=== PATIENT | female | born 2000 | race Caucasian/White ===

== ENCOUNTER 2021-09-24 21:18 | Emergency (ER) | payer OTHER ==
[~2021-09-24 21:18] MED LIST: AMOXICILLIN500 MG PO; AZITHROMYCIN500 MG PO; BACTRIM DS TAB1 EACH PO; IBUPROFEN400 M1 PO; IBUPROFEN800 MG PO; METRONIDAZOLE500 MG PO; NORCO 5-325 TA1 EACH PO; PHENERGAN25 M1 PO; PROMETHAZINE-D118 ML PO; ZOFRAN4 MG PO; ZYRTEC10 M3 PO
[2021-09-24 22:45] LABS: BASOPHIL 0.1 % (0-2); EOSINOPHIL 0.2 % (0-5); HCT 48.3 % (37.0-47.0); HGB 16.3 g/dl (12.5-16.0); LYMPHOCYTE 3.8 % (15-48); MCH 30.8 pg (25.0-31.0); MCHC 33.7 g/dL (32.0-36.0); MCV 91.1 fL (78.0-100.0); MONOCYTE 3.2 % (0-12); NEUTROPHIL 92.3 % (41-80); NRBC 0; PLT 279 K/uL (150-400); RDW 12.1 % (11.5-14.0); WBC 16.9 K/uL (4.0-10.5)
[2021-09-24 23:04] LABS: ALBUMIN 4.5 g/dL (3.4-5.0); BILIRUBIN - TOTAL 0.4 mg/dL (0.2-1.0); BUN/CREAT RATIO (CALC) 15.4 RATIO; CREATININE 0.65 mg/dL (0.51-0.95); GLOBULIN (CALCULATION) 3.6 g/dL; POTASSIUM 3.9 mmol/L (3.5-5.1); TOTAL PROTEIN 8.1 g/dL (6.4-8.2)
[2021-09-24 23:11] LABS: HCG (URINE) SCREEN NEGATIVE (NEGATIVE)
[2021-09-24 23:18] LABS: LACTIC ACID 0.8 mmol/L (0.4-1.9)
[2021-09-24 23:22] LABS: CORONAVIRUS 2019 SARS-COV-2 NEGATIVE (NEGATIVE); INFLUENZA A NAA NEGATIVE (NEGATIVE)
[2021-09-25] MEDS ORDERED: ONDANSETRON ODT4 MG PO (00:28)
== END 2021-09-25 00:40 | disposition home or self-care (01) ==
LOC: FER 21:18
PROVIDERS: Nurse Practitioner Family
DX: K52.9 Noninfective gastroenteritis and colitis, unspecified (principal); Z20.822 Contact with and (suspected) exposure to COVID-19
CPT/HCPCS: 36415; 80053; 83605; 84703; 85025; J2270; J2405; J7030; Q9967; U0002

== ENCOUNTER 2021-11-26 15:46 | Emergency (ER) | payer OTHER ==
[~2021-11-26 15:46] MED LIST changes: +ONDANSETRON ODT4 MG PO
[2021-11-26 16:21] LABS: BASOPHIL 0.4 % (0-2); EOSINOPHIL 0.4 % (0-5); HCT 40.8 % (37.0-47.0); HGB 13.6 g/dl (12.5-16.0); LYMPHOCYTE 26.1 % (15-48); MCH 30.4 pg (25.0-31.0); MCHC 33.3 g/dL (32.0-36.0); MCV 91.1 fL (78.0-100.0); MONOCYTE 5.9 % (0-12); NRBC 0; PLT 330 K/uL (150-400); RBC 4.48 M/uL (4.20-5.40); WBC 9.4 K/uL (4.0-10.5)
[2021-11-26 16:39] LABS: ALBUMIN 4.1 g/dL (3.4-5.0); BILIRUBIN - TOTAL 0.3 mg/dL (0.2-1.0); CREATININE 0.65 mg/dL (0.51-0.95); GLOBULIN (CALCULATION) 3.5 g/dL; POTASSIUM 3.8 mmol/L (3.5-5.1); TOTAL PROTEIN 7.6 g/dL (6.4-8.2)
[2021-11-26 17:11] LABS: BILIRUBIN NEGATIVE (NEGATIVE); BLOOD NEGATIVE Ery/uL (NEGATIVE); CLARITY CLEAR (CLEAR); COLOR YELLOW (YELLOW); GLUCOSE (U) NORMAL (NORMAL); LEUKOCYTES NEGATIVE Leu/uL (NEGATIVE); NITRITE NEGATIVE (NEGATIVE); PROTEIN TRACE (LOW) mg/dL (NEGATIVE); SPECIFIC GRAVITY >=1.030 (1.001-1.030); UROBILINOGEN 0.2 mg/dL (0.2-1.0); pH 6.5 (5.0-9.0)
[2021-11-26] MEDS ORDERED: BENTYL10 MG PO (18:19)
== END 2021-11-26 18:38 | disposition home or self-care (01) ==
LOC: FER 15:46
PROVIDERS: Nurse Practitioner Family
DX: R10.9 Unspecified abdominal pain (principal)
CPT/HCPCS: 36415; 80053; 81003; 83690; 85025; J1885; J7030

== ENCOUNTER 2022-06-09 00:17 | Emergency (ER) | payer OTHER ==
[~2022-06-09 00:17] MED LIST changes: +BENTYL10 MG PO
[2022-06-09 00:53] LABS: BILIRUBIN NEGATIVE (NEGATIVE); BLOOD NEGATIVE Ery/uL (NEGATIVE); CLARITY CLEAR (CLEAR); COLOR YELLOW (YELLOW); GLUCOSE (U) NORMAL (NORMAL); LEUKOCYTES 1+ Leu/uL (NEGATIVE); NITRITE NEGATIVE (NEGATIVE); PROTEIN NEGATIVE (NEGATIVE); UROBILINOGEN 0.2 mg/dL (0.2-1.0)
[2022-06-09 00:54] LABS: BASOPHIL 0.2 % (0-2); EOSINOPHIL 0.4 % (0-5); HGB 14.4 g/dl (12.5-16.0); LYMPHOCYTE 32.4 % (15-48); MCHC 33.5 g/dL (32.0-36.0); MCV 92.5 fL (78.0-100.0); MONOCYTE 5.3 % (0-12); NEUTROPHIL 61.6 % (41-80); NRBC 0; PLT 297 K/uL (150-400); RBC 4.65 M/uL (4.20-5.40); RDW 13.1 % (11.5-14.0); WBC 8.2 K/uL (4.0-10.5)
[2022-06-09 01:00] LABS: BACTERIA 1+; URINARY RBC RARE
[2022-06-09 01:09] LABS: ALBUMIN 4.3 g/dL (3.4-5.0); BILIRUBIN - TOTAL 0.4 mg/dL (0.2-1.0); BUN/CREAT RATIO (CALC) 12.9 RATIO; CREATININE 0.62 mg/dL (0.51-0.95); GLOBULIN (CALCULATION) 3.4 g/dL; POTASSIUM 3.5 mmol/L (3.5-5.1); TOTAL PROTEIN 7.7 g/dL (6.4-8.2)
[2022-06-09] MEDS ORDERED: ONDANSETRON ODT4 MG PO (03:55)
[2022-06-09] MEDS ORDERED: BACTRIM DS TAB1 EACH PO (03:55)
[2022-06-09] MEDS ORDERED: DIFLUCAN 100MG100 MG PO (03:55)
[2022-06-09] MEDS ORDERED: METRONIDAZOLE500 MG PO (04:47)
[2022-06-10 22:09] LABS: CHLAMYDIA TRACHOMATIS, NAA Negative (Negative); NEISSERIA GONORRHOEAE, NAA Negative (Negative)
== END 2022-06-09 04:19 | disposition home or self-care (01) ==
LOC: FER 00:17
PROVIDERS: Emergency Medicine
DX: N39.0 Urinary tract infection, site not specified (principal); Z28.310 Unvaccinated for COVID-19
CPT/HCPCS: 36415; 80053; 81001; 82150; 83690; 85025; 87210; 87491; 87591; Q0162